=== PATIENT | male | born 1990 | race Caucasian/White ===

== ENCOUNTER 2024-01-18 12:23 | Outpatient (OUT) | payer BC, SELFPAY ==
--- NOTE | 2024-01-18 13:23 | P.GSHP_ITS ---
History of Present Illness History of Present Illness Chief complaint: RIGHT EPIDIDMAL CYST Narrative: Patient presents for preadmission testing. Please see HPI from Dr. Cline dated January 07, 2024. Review of Systems ROS Narrative Please see ROS from Dr. Cline dated January 07, 2024. [facility] Medical History (Updated 01/18/24 @ 13:26 by Ella Tobar NP) Testicular pain ?N50.819 - Testicular pain, unspecified (ICD-10) Anxiety ?F41.9 - Anxiety disorder, unspecified (ICD-10) Kidney stones ?N20.0 - Calculus of kidney (ICD-10) Heartburn ?R12 - Heartburn (ICD-10) Epididymal cyst ?N50.3 - Cyst of epididymis (ICD-10) Surgical History (Updated 01/18/24 @ 12:50 by Ella Tobar NP) History of wisdom tooth extraction ?K08.409 - Partial loss of teeth, unspecified cause, unspecified class (ICD- 10) Family History (Updated 01/18/24 @ 12:50 by Ella Tobar NP) Other Cancer Social History (Updated 01/18/24 @ 12:47 by Ella Tobar NP) Within the past year, how often did you have a drink containing alcohol: 4 or more times a week Within the past year, how many standard drinks containing alcohol did you have on a typical day: 1 or 2 Total score: 0 Score interpretation: A score less than 4 is consistent with normal alcohol consumption. 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 Highest level of school completed/degree received: Associate degree: occupational, technical, vocational program Meds Home Medications and Allergies Allergies Allergy/AdvReac Type Severity Reaction Status Date / Time No Known Drug Allergies Allergy Verified 01/18/24 12:46 Exam Narrative Exam Narrative: Constitutional: Awake, alert, comfortable, well-appearing, nontoxic, interactive, vital signs as charted Head: Normocephalic, atraumatic Neck: Supple, normal appearance, normal range of motion, no meningeal signs, no lymphadenopathy Respiratory: No respiratory distress, breath sounds clear Cardiovascular: Regular rate and rhythm, strong and regular heart tones Abdomen: Nontender, normal bowel sounds, soft, no CVA tenderness Musculoskeletal: Normal gait, no swelling or edema Skin: No rashes or induration, no lesions, only visible skin inspected Neuro: No neurological deficits, normal sensation Psychiatric: Oriented ?3, normal affect Assessment and Plan Assessment and Plan (1) Epididymal cyst: (2) Testicular pain: Plan Right epididymal cyst removal scheduled with Dr. Cline February 02, 2024.
== END 2024-01-18 12:24 | disposition home or self-care (01) ==
LOC: PST 12:27
PROVIDERS: PCP Family Medicine; Visit Provider Urology
DX: Z01.818 Encounter for other preprocedural examination (principal); N50.3 Cyst of epididymis
CPT/HCPCS: G0463

== ENCOUNTER 2024-02-02 11:15 | Day surgery (SDC) | payer BC, SELFPAY ==
[2024-01-18 12:58] VITALS: BP 124/77; PULSE 60; TEMP 36.3; O2SAT 99; BMI 30.9
[2024-02-02] VITALS (10 sets, daily range): BP systolic 107–134; BP diastolic 66–93; PULSE 50–77; TEMP 35.5–36.5; O2SAT 94–99; BMI 30.6
--- OUTSIDE RECORDS SUMMARY | 2024-02-02 11:37 | XMS_ITS | CCD ---
Author Organization 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 Name Role Phone CARSON العلي Primary Care Physician CARSON العلي Attending Unavailable CARSON العلي Attending Unavailable CARSON العلي Referring Unavailable Kisha Cline Attending Unavailable Kisha Cline Attending Unavailable CARSON العلي Referring Unavailable Allergies Allergy Classification Reported Allergen(s) Allergy Type Date of Onset Reaction(s) Facility (1 source) No Known Medication Allergies; Translations: [No Known Medication Allergies] Propensity to adverse reactions (disorder) [facility] Repository Problems Problem Classification Problem Date Documented Date Episodic/Chronic Calculus of urinary tract (2 sources) Kidney stone 08-28-2022 Episodic Genitourinary congenital anomalies (1 source) 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; 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 Jones. The epididymal head cyst is in fact on the right, not on the left. The following findings and impression correct and replace the original report: FINDINGS: Measurements: Right testicle: 4.3 x 2.8 x 2.4 cm Left testicle: 4.6 x 2.8 x 2.6 cm Left epididymal head: 1.0 x 2.0 x 1.3 cm Near symmetric testicles. No hydrocele or varicocele. Left testicle: Normal homogeneous echogenicity. No focal lesion is seen in the left testicle. The arterial inflow to the right testicle has normal low resistance on color and pulsed Doppler. The right epididymis is unremarkable. Epididymal bloodflow is normal. Right testicle: Normal homogeneous echogenicity. No focal mass is seen in the right testicle. The arterial inflow to the left testicle has normal low resistance on color and pulsed Doppler. In the region of the left epididymis there is a large multiseptate cystic lesion measuring 6.7 x 5.1 x 5.1 cm, previously measuring 4.2 x 2.7 x 4.8 cm, though there are significant technique differences which renders direct measurement comparison suboptimal. No hyperemia. Normal left epididymal tissue is not discretely observed. IMPRESSION: 1. 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 2. Otherwise normal scrotal contents. Electronically Signed Sorin Schilling M.D. 2023-12-07 15:53:08 TITLE OF EXAM: US - US TESTICLES REASON FOR EXAM: Epi head cyst TECHNIQUE: Grayscale, color, and Doppler sonographic evaluation of the contents of the scrotum. COMPARISON: Scrotal ultrasound 07/03/2022 FINDINGS: Measurements: Right testicle: 4.3 x 2.8 x 2.4 cm Left testicle: 4.6 x 2.8 x 2.6 cm Left epididymal head: 1.0 x 2.0 x 1.3 cm Near symmetric testicles. No hydrocele or varicocele. Right testicle: Normal homogeneous echogenicity. No focal lesion is seen in the right testicle. The arterial inflow to the right testicle has normal low resistance on color and pulsed Doppler. The right epididymis is unremarkable. Epididymal bloodflow is normal. Left testicle: Normal homogeneous echogenicity. No focal mass is seen in the left testicle. The arterial inflow to the left testicle has normal low resistance on color and pulsed Doppler. In the region of the left epididymis there is a large multiseptate cystic lesion measuring 6.7 x 5.1 x 5.1 cm, previously measuring 4.2 x 2.7 x 4.8 cm, though there are significant technique differences which renders direct measurement comparison suboptimal. No hyperemia. Normal left epididymal tissue is not discretely observed. IMPRESSION: 1. 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 2. Otherwise normal scrotal contents. DICTATED ON: 12/07/2023 9:27 AM This report has been electronically signed in approved by the interpreting radiologist. Electronically Signed Sorin Schilling M.D. 2023-12-07 09:32:04 Normal Not Available Vital Signs Date Time Vital Sign Value Performing Clinician Dioni taylor 01-07-2024 13:54-0400 Blood Pressure Location Kisha Lue [facility] 01-07-2024 13:54-0400 Body temperature 96.8 [degF] Kisha Lue [facility] 01-07-2024 13:54-0400 Diastolic blood pressure 68 mm[Hg] Kisha Lue [facility] 01-07-2024 13:54-0400 Heart rate 62 /min Kisha Lue [facility] 01-07-2024 13:54-0400 Respiratory rate 18 /min Kisha Lue [facility] 01-07-2024 13:54-0400 Systolic blood pressure 128 mm[Hg] Kisha Lue [facility] 08-28-2022 09:30-0400 Diastolic blood pressure 83 mm[Hg] Kisha Lue [facility] 08-28-2022 09:30-0400 Heart rate 69 /min Kisha Lue [facility] 08-28-2022 09:30-0400 Systolic blood pressure 144 mm[Hg] Kisha Cline [facility] Encounters Encounter Date Encounter Type Care Provider Facility Start: 02-02-2024 ambulatory Kisha M. Lue Facility:[facility] Start: 01-07-2024 End: 01-07-2024 ambulatory Kisha M. Lue Facility:[facility] Start: 01-07-2024 End: 01-07-2024 Patient encounter procedure Kisha Cline [facility] Start: 12-08-2023 ambulatory Kisha Lusamuel Facility:[facility] Start: 12-07-2023 End: 12-07-2023 ambulatory CARSON Ventura PETZNICK Not Available Start: 12-06-2023 End: 12-06-2023 ambulatory CARSON C PETZNICK Not Available Start: 09-02-2023 End: 09-02-2023 ambulatory CARSON C PETZNICK Not Available Start: 08-28-2022 End: 08-28-2022 Patient encounter procedure Kisha Cline [facility] Immunizations Immunization Date Immunization Notes Care Provider Dee denny 06-11-2006 hepatitis B vaccine, pediatric or pediatric/adolescent dosage Kisha Lue [facility] 12-24-2005 hepatitis B vaccine, pediatric or pediatric/adolescent dosage Kisha Lue [facility] 10-19-2005 hepatitis B vaccine, pediatric or pediatric/adolescent dosage Kisha Lue [facility] 10-19-2005 meningococcal ACWY vaccine, unspecified formulation Kisha Lue [facility] 10-19-2005 tetanus toxoid, redu myrtle diphtheria toxoid, and acellular pertussis vaccine, adsorbed Kisha Lue [facility] 01-05-2000 measles, mumps and rubella virus vaccine Kisha Lue [facility] 02-24-1990 measles, mumps and rubella virus vaccine Kisha Lue [facility] Payers Date Payer Category Payer Unknown [id number] 1988 Unknown [id number] 1988 Unknown [id number] 1988 Unknown [id number] 1988 Unknown [id number] Social History Date Type Detail Facility Start: 08-28-2022 End: 01-07-2024 Tobacco smoking status Never smoked tobacco (finding) [facility] Tobacco smoking status Never [facility] Sex Assigned At Male [facility] Functional Status Date Assessment Result Facility 01-07-2024 Functional Status N/A [facility] 08-28-2022 Functional Status N/A [facility] Hospital Discharge instructions 01-07-2024 Note Date & Type Note Facility 01-07-2024 Hospital Discharg e instructions Patient Education 01/07/2024 14:50:16 Spermatocele Spermatocele A spermatocele is a fluid-filled sac (cyst) inside the sac that holds the testicles (scrotum). This type of cyst often forms in the epididymis. The epididymis is a coiled tube at the top of each testicle, and this tube is where sperm are stored. The cyst sometimes forms along a tube called the vas deferens, which is a tube that carries sperm away from the epididymis. Spermatoceles are usually painless. Most cysts are small, but they can grow larger. Spermatoceles are not cancerous (are benign). What are the causes? The cause of this condition is not known. However, this condition usually results from a blockage in one of the many small tubes (tubules) that carry sperm from your testicle to your vas deferens. What are the signs or symptoms? In most cases, small cysts do not cause symptoms. However, symptoms sometimes occur. Symptoms of this condition include: Dull pain. A feeling of heaviness. An enlarged scrotum, if your cyst is large. How is this diagnosed? This condition is diagnosed based on a physical exam. You or your health care provider may notice your cyst when feeling your scrotum. Your health care provider may shine a light through (transilluminate) your scrotum to see if light will pass through your cyst. You may have an ultrasound of the scrotum to rule out a tumor. How is this treated? Small spermatoceles do not need to be treated. If your spermatocele has grown large or is uncomfortable, your health care provider may recommend surgery to remove it. Follow these instructions at home: Check your spermatocele regularly for any changes. Do regular self-exams of your scrotum. Keep all follow-up visits. This is important. Contact a health care provider if: Your spermatocele gets larger. You have pain in your scrotum. Your spermatocele comes back after treatment. Get help right away if: You experience severe pain and redness of your scrotum. Summary A spermatocele is a fluid-filled sac, or a cyst, inside the sac that holds the testicles (scrotum). This condition is usually painless, and it is not cancerous (is benign). Your health care provider may recommend surgery to remove your spermatocele if it grows large or is uncomfortable. If you have a spermatocele, check for any changes and do self-exams of your scrotum. Keep all follow-up visits. This is important. This information is not intended to replace advice given to you by your health care provider. Make sure you discuss any questions you have with your health care provider. Document Revised: 01/12/2022 Document Reviewed: 01/12/2022 [employer] Patient Education 2022 [employer]. Follow Up Care 12/13/2023 08:29:09 With:Son MARCUS, Kisha Goetz, URL, [facility] Address: When: Unknown Comments:Sched Epididymal cyst removal [facility] Clinical Note 01-07-2024 Note Date & Type Note Facility 01-07-2024 Note Urology Office/Clini c Note Chief Complaint Re-referral due to epididymal cyst HPI Staff Re-referred by Dr. Carson العلي for epididymal cyst and discomfort in right testicle. Last seen IO 08/28/22. Dx: epididymal cyst. Repeat Scrotal US done 12/06/23 at [facility]. Dysuria: denies pain and burning Incomplete bladder emptying: denies Hematuria: denies visible blood Frequency: denies Urgency: denies Nocturia: denies Stream: denies hesitancy Leaking: denies Post void dripping: denies Wearing pads/ Depends: denies Urge incontinence: denies Stress incontinence: denies Incontinence without Sensory Awareness: denies Abdominal pain: denies Flank pain: denies Sexual complaints: denies History of Present Illness Tests reviewed: reviewed UA, referral records, scrotal ultrasound I have reviewed the previous health record information and history for this patient from Dr. Carson العلي and Dr. Cline. I have reviewed and verified the staff HPI to be accurate for this encounter. Review of Systems PHQ Score Initial Depression Screen Score: 0 SCORE ROS - Provider Constitutional: denies weight loss, denies hot flashes. Eyes: denies eye problems. Gastrointestinal: denies nausea, denies vomiting. Cardiovascular: denies chest pain or angina. Integumentary: no dryness Musculoskeletal: denies musculoskeletal symptoms. ENMT: denies otolaryngeal symptoms. Respiratory: no shortness of breath. Heme/Lymph: denies easy bleeding tendency, denies easy bruising tendency. Psychiatric: no confusion, no anxiety. Genitourinary: See HPI. Physical Exam Vitals & Measurements T: 36 ?C(Temporal Artery) HR: 62(Peripheral) RR: 18 BP: 128/68 HT: 73 in HT: 185 cm WT: 108 kg WT: 237.6 lb BMI: 31.56 General Appearance: alert, no distress, well nourished, well developed male. Genitourinary: 6 x 5 cm right cystic, lobular structure adherent to right epididymal head, extending superiorly. Nontender, no erythema. Palpable vas BL however unable to fully evaluate prior vasectomy site. Left superior testes mildly tender more consistent with location of pain, minimal left epididymal head tenderness, no masses. Flank Pain: none. Bladder: nonpalpable. Penis: normal shaft, normal glans. Assessment/Plan Re-referred by Dr. Carson العلي for epididymal cyst and discomfort in left testicle. Hx of vasectomy, no other surgeries. 1. Epididymal cyst (N50.3: Cyst of epididymis) US scrotum 06/25/22 - Nonspecific multi-septated cystic structure adjacent to the right testicle measures ~4.8 x 4.2 x 2.7 cm and contains echogenic material. Likely represents interval enlargement of previously seen epididymal head cysts. Scrotal US 12/07/23 [facility] - R testicle measuring 4.3 x 2.8 2.4 cm. large multiseptate cystic lesion measuring 6.7 x 5.1 x 5.1 cm -likely spermatocele. Discussed increasing size of cyst with pt. Pt states it is not bothersome every day but becoming more bothersome due to increasing size. Pt would like to remove epididymal cyst. Discussed surgical treatment options thoroughly with pt. Risks and Benefits were discussed with the patient. These include bleeding, infection, pain, testicular atrophy, hypogonadism, loss of epididymis/testes and need for additional procedures. Pre-op consent reviewed with and obtained from patient. Order General anesthesia. -Will schedule right epididymal cyst removal. 2. BPH (benign prostatic hyperplasia) (N40.0: Benign prostatic hyperplasia without lower urinary tract symptoms) IPSS 3 (3). NATHANAEL 25 (25). UA today shows trace-intact blood, negative for nitrites and leuks. No urinary complaints today. No gross hematuria. -Continue behavior modifications and timed voids 3. 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 Explained to pt that this possibly may be post-vasectomy or nerve pain. Upon PE, pain is in the area of appendix testes. Discussed pathophysiology of intermittent irritation/twisting of appendix testes. Discussed conservative management including anti-inflammatories, scrotal support and rest. Potential for fulgurating the appendix testes this during surgery on the right side however, this would increase the risk for postoperative hematoma and swelling. Risk of compromising both testicles. Patient only wears boxers. Patient declined surgical treatment at this time -Rest, anti-inflammatories, Scrotal support Follow-up With When Contact Information Kisha Cline MD, URL, [facility] Additional Instructions: Sched Epididymal cyst removal Patient Education Spermatocele Mehnaz, Angi Diane, personally scribed for Dr. Cline on 01/07/2024 14:50:50. . Documentation recorded by the scribeAngi , accurately reflects the services(s) I performed and decisions made by me. Authenticated by Dr. Son nielson (more content not included)... [facility] Comment on above: Result Comment: Elec tronically Signed By: Kisha Cline MD\.br\Date and Time Signed: 01/07/24 16:39 EDT\.br\Electronically Co-Signed By: Angi Diane\.br\Date and Time Co-Signed: 01/07/24 14:51 EDT Clinical Note 01-07-2024 Note Date & Type Note Facility 01-07-2024 Note Patient Education Urology Spermatocele A spermatocele is a fluid-filled sac (cyst) inside the sac that holds the testicles (scrotum). This type of cyst often forms in the epididymis. The epididymis is a coiled tube at the top of each testicle, and this tube is where sperm are stored. The cyst sometimes forms along a tube called the vas deferens, which is a tube that carries sperm away from the epididymis. Spermatoceles are usually painless. Most cysts are small, but they can grow larger. Spermatoceles are not cancerous (are benign). What are the causes? The cause of this condition is not known. However, this condition usually results from a blockage in one of the many small tubes (tubules) that carry sperm from your testicle to your vas deferens. What are the signs or symptoms? In most cases, small cysts do not cause symptoms. However, symptoms sometimes occur. Symptoms of this condition include: ? Dull pain. ? A feeling of heaviness. ? An enlarged scrotum, if your cyst is large. How is this diagnosed? This condition is diagnosed based on a physical exam. ? You or your health care provider may notice your cyst when feeling your scrotum. ? Your health care provider may shine a light through (transilluminate) your scrotum to see if light will pass through your cyst. You may have an ultrasound of the scrotum to rule out a tumor. How is this treated? Small spermatoceles do not need to be treated. If your spermatocele has grown large or is uncomfortable, your health care provider may recommend surgery to remove it. Follow these instructions at home: ? Check your spermatocele regularly for any changes. ? Do regular self-exams of your scrotum. ? Keep all follow-up visits. This is important. Contact a health care provider if: ? Your spermatocele gets larger. ? You have pain in your scrotum. ? Your spermatocele comes back after treatment. Get help right away if: ? You experience severe pain and redness of your scrotum. Summary ? A spermatocele is a fluid-filled sac, or a cyst, inside the sac that holds the testicles (scrotum). This condition is usually painless, and it is not cancerous (is benign). ? Your health care provider may recommend surgery to remove your spermatocele if it grows large or is uncomfortable. ? If you have a spermatocele, check for any changes and do self-exams of your scrotum. ? Keep all follow-up visits. This is important. This information is not intended to replace advice given to you by your health care provider. Make sure you discuss any questions you have with your health care provider. Document Revised: 01/12/2022 Document Reviewed: 01/12/2022 Elsevier Patient Education ? 2022 [employer] [facility] Hospital Discharge instructions 08-26-2022 Note Date & Type Note Facility 08-26-2022 Hospital Discharg e instructions Patient Education 08/26/2022 14:08:18 Testicular Self-Exam Testicular Self-Exam A self-examination of your testicles (testicular self-exam) involves looking at and feeling your testicles for abnormal lumps or swelling. Several things can cause swelling, lumps, or pain in your testicles. Some of these causes are: Injuries. Inflammation. Infection. Buildup of fluids around your testicle (hydrocele). Twisted testicles (testicular torsion). Testicular cancer. Why is it important to do a testicular self-exam? Self-examination of the testicles and the left and right groin areas may be recommended if you are at risk for testicular cancer. Your groin is where your lower abdomen meets your upper thighs. You may be at risk for testicular cancer if you have: An undescended testicle (cryptorchidism). A history of previous testicular cancer. A family history of testicular cancer. How to do a testicular self-exam The testicles are easiest to examine after a warm bath or shower. They are more difficult to examine when you are cold. This is because the muscles attached to the testicles retract and pull them up higher or into the abdomen. A normal testicle is egg-shaped and feels firm. It is smooth and not tender. The spermatic cord can be felt as a firm, spaghetti-like cord at the back of your testicle. Look and feel for changes Stand and hold your penis away from your body. Look at each testicle to check for lumps or swelling. Roll each testicle between your thumb and forefinger, feeling the entire testicle. Feel for: ?Lumps. ?Swelling. ?Discomfort. Check the groin area between your abdomen and upper thighs on both sides of your body. Look and feel for any swelling or bumps that are tender. These could be enlarged lymph nodes. Contact a health care provider if: You find any bumps or lumps, such as a small, hard, pea-sized lump. You find swelling, pain, or soreness. You see or feel any other changes in your testicles. Summary A self-examination of your testicles (testicular self-exam) involves looking at and feeling your testicles for any changes. Self-examination of the testicles and the left and right groin areas may be recommended if you are at risk for testicular cancer. You should check each of your testicles for lumps, swelling, or discomfort. You should check for swelling or tender bumps in your groin area between your lower abdomen and upper thighs. This information is not intended to replace advice given to you by your health care provider. Make sure you discuss any questions you have with your health care provider. Document Released: 08/30/2001 Document Revised: 09/14/2019 Document Reviewed: 04/19/2017 [employer] Patient Education 2020 [employer] Follow Up Care 07/08/2022 12:47:45 With:Son MARCUS, ADORE Pisano, [facility] Address: When: Unknown [facility] Evaluation + Plan note Note Date & Type Note Facility Evaluation + Plan note No data available for this section [facility] Progress note Note Date & Type Note Facility Progress note No data available for this section [facility] Summary Purpose Family History No Family History Records Found No data available for this section No Family History Records Found Advance Directives No Advanced Directives Records FoundNo Advanced Directives Records Found Additional Source Comments Patient Care team informatio n (unrecognized section and content) Personnel Name: CARSON العلي DO Address: Address: [address] [place] [address] Personnel Name: CARSON العلي DO Address: Address: [address] [place] [address] (unrecognized sect ion and content) No Status Records FoundNo Status Records Found INFORMATION SOURCE (unrecogn ized section and content) DATE CREATED AUTHOR 12/11/2023 [facility] DATE CREATED AUTHOR AUTHOR'S CINDYIZ ATION 01/15/2024 [facility] FOR RECORDS PERTAINING TO PATIENTS WHO ARE OR HAVE BEEN ENROLLED IN A CHEMICAL DEPENDENCY/SUBSTANCEABUSE PROGRAM, SOME INFORMATION MAY BE OMITTED. This clinical summary was aggregated from multiple sources. Caution should be exercised in using it in the provision of clinical care. This summary normalizes information from multiple sources, and as a consequence, information in this document may materially change the coding, format and clinical context of patient data. In addition, data may be omitted in some cases. CLINICAL DECISIONS SHOULD BE BASED ON THE PRIMARY CLINICAL RECORDS. [facility] [employer] [facility]. provides no warranty or guarantee of the accuracy or completeness of information in this document.
[2024-02-02] MEDS: LACTATED RINGER'S SOLUTION 1,000 ML 50 ML IV (11:40)
[2024-02-02] MEDS: SCOPOLAMINE 1 MG/3 DAYS TRANSDERM PATCH 1 PATCH TD (13:43)
[2024-02-02] MEDS: CEFAZOLIN SODIUM 2 GM/50 ML D5W PREMIX IV (13:43)
[2024-02-02] MEDS: BUPIVACAINE HCL 0.25% PF 25 MG/10 ML VIAL INJ (14:26)
--- NOTE | 2024-02-02 15:52 | P.URON_ITS ---
Urology Surgery Operative Note Operative Note Procedure Date: 02/02/24 Time Out Performed: yes Pre-op Diagnosis: Right epididymal cyst Post-op Diagnosis: same as pre-op Procedures performed: Right epididymal cyst removal Anesthesia: General-LMA Primary Surgeon: Kisha Cline Complications: none Estimated blood loss (mL): 1 Findings: Large ~ 5x7 cm multiseptated right epididymal head cyst containing clear fluid, displacing epididymis away from testicle. The sac was entirely removed. Specimens: epididymal cyst sac Drains: none Indications for Procedures: 33 year old male with a bothersome right epididymal head cyst measuring 6.7 x 5.1 x5.1 cm presents for definitive treatment after discussion of risks, benefits and alternative treatments in clinic. Risks were discussed including but not limited to bleeding, pain, infection, damage to surrounding structures, loss of testicle/epididymis, recurrence, and need for additional procedures. Detailed description of Procedure: After informed consent was obtained, the patient was brought back to the operating room and timeout was performed verifying the patient, the procedure and procedure site. General anesthesia LMA was induced and the patient was placed in?supine position with all pressure points padded appropriately. He received cefazolin 2g IV for prophylaxis. Scrotum was shaved, prepped and draped in the usual sterile standard fashion for this procedure. A 4 cm right transverse scrotal incision was made sharply and then using electro cautery, the dartos layers were dissected through until tunica vaginalis was exposed. This was entered sharply away from the testicle and cyst and small amount of clear yellow fluid was aspirated. The testicle and epididymis were delivered. The cyst was identified at the epididymal head and carefully dissected from the remaining epididymis. Due to the multiseptated and intimately intertwined nature between the testicle and epididymis, the cyst was sharply entered and drained 100cc clear fluid. The sac was dissected from all the surrounding layers down to the base. The base was ligated and divided with a 4-0 vicryl suture and the cyst sac sent for pathology. The area was irrigated and excellent hemostasis was achieved with pinpoint electrocautery. The appendix testis was cauterized and removed. Local anesthetic of 0.25% marcaine was delivered to the cord. The tunica over the epididymis was closed with running 4-0 vicryl. The testicle was placed back into the scrotum with extra care to ensure in correct orientation with the lateral sulcus in the appropriate anatomical position. No torsion of spermatic cord. The tunica vaginalis and dartos layers were closed with running 3-0 vicryl in 2 layers. Local anesthetic was instilled into the incision. We then closed the skin with a 4-0 chromic suture in an interrupted horizontal mattress fashion followed by skin glue. Fluffs and scrotal support were applied. This concluded our case. The patient was awakened from anesthesia and transported to PACU in stable condition.? Plan: Discharge home. Follow up in 2-4 weeks for post op check and pathology review ?
--- NOTE | 2024-02-02 17:21 | PC.NURSE ---
large amount of yellow urine
== END 2024-02-02 17:00 | disposition home or self-care (01) ==
PROVIDERS: PCP Family Medicine; Visit Provider Urology
PROC: (CPT 920; principal; 2024-02-02 12:25)
DX: N50.3 Cyst of epididymis (principal); K21.9 Gastro-esophageal reflux disease without esophagitis
CPT/HCPCS: 54830; 88304; J0665; J0690